=== PATIENT | male | born 1960 | race Caucasian/White ===

== ENCOUNTER 2016-11-14 20:51 | Emergency (ER) | payer OTHER ==
[2016-11-14 20:59] VITALS: BP 166/102; PULSE 71; TEMP 97.7; BMI 27.3
--- NOTE | 2016-11-14 21:04 | PDOC ---
History of Present Illness <Martin Neff - Last Filed: 11/14/16 21:00> - History of Present Illness Initial Comments: 11/14/16 21:05 The patient is a 55 year old male with no past medical hx who presents to the ED for evaluation of a laceration to his right index finger. The patient reports he was washing a glass in his kitchen this evening when the glass broke and cut his finger. He reports he has been bleeding from his finger since. The patient denies any other symptoms or complaints at this time. <Palak Rivero - Last Filed: 11/14/16 21:06> - General Chief Complaint: Injury Stated Complaint: LACERATION Time Seen by Provider: 11/14/16 20:59 Past History - Past Medical History GI Disorders: Yes (gastric ulcers) HTN: Yes - Immunization History Immunization Up to Date: Yes - Psycho/Social/Smoking Cessation Hx Anxiety: No Suicidal Ideation: No Smoking History: Never smoked Have you smoked in the past 12 months: No Information on smoking cessation initiated: No Hx Alcohol Use: No Drug/Substance Use Hx: No Substance Use Type: None <Martin Neff - Last Filed: 11/14/16 21:00> <Palak Rivero - Last Filed: 11/14/16 21:06> - Past Medical History Allergies/Adverse Reactions: Allergies Allergy/AdvReac Type Severity Reaction Status Date / Time aspirin AdvReac Verified 02/05/16 18:41 Home Medications: Ambulatory Orders Famotidine [Pepcid -] 20 mg PO BID #28 tablet 02/05/16 Simethicone [Gas Relief] 125 mg PO DAILY 02/05/16 Sucralfate [Carafate -] 1 gm PO QID #56 tablet 02/05/16 Review of Systems - Review of Systems Able to Perform ROS?: Yes Comments:: 11/14/16 21:05 SKIN: +Laceration to the right index finger <Palak Rivero - Last Filed: 11/14/16 21:06> *Physical Exam - Vital Signs Last Vital Signs Temp Pulse Resp BP Pulse Ox 97.7 F 71 16 166/102 100 11/14/16 20:56 11/14/16 20:56 11/14/16 20:56 11/14/16 20:56 11/14/16 20:56 - Physical Exam General Appearance: Yes: Nourished, Appropriately Dressed. No: Apparent Distress Respiratory/Chest: negative: Respiratory Distress Cardiovascular: positive: Regular Rhythm, Regular Rate Extremity: positive: Normal Capillary Refill, Normal Range of Motion, Other ( AVULSION LAC SUPERFICIAL RADIAL ASPECT RT INDEX MCP NTV INTACT) <Martin Neff - Last Filed: 11/14/16 21:00> - Vital Signs Last Vital Signs Temp Pulse Resp BP Pulse Ox 97.7 F 71 16 166/102 100 11/14/16 20:56 11/14/16 20:56 11/14/16 20:56 11/14/16 20:56 11/14/16 20:56 <Palak Rivero - Last Filed: 11/14/16 21:06> Procedures - Laceration/Wound Repair Right Lateral Hand Wound Length: to 2.5 cm Wound Explored: clean Wound's Depth, Shape: superficial Irrigated w/ Saline: Yes Wound Repaired With: Dermabond Progress: 11/14/16 21:02 STERI STRIPS <Martin Neff - Last Filed: 11/14/16 21:00> *DC/Admit/Observation/Transfer <Martin Neff - Last Filed: 11/14/16 21:00> - Attestations Scribe Attestion: 11/14/16 21:05 Documentation prepared by Palak Rivero, acting as medical donation professional for Martin Neff MD/DO. <Plaak Rivero - Last Filed: 11/14/16 21:06> Diagnosis at time of Disposition: Laceration of hand Qualifiers: Encounter type: initial encounter Laterality: right Qualified Code(s): S61.411A - Laceration without foreign body of right hand, initial encounter - Discharge Dispostion Disposition: HOME Condition at time of disposition: Stable - Patient Instructions Additional Instructions: MANTENGA LA FERULA POR DOS ALVARADO NO LA MOJE RETIRE LA FERULA Y LA GAZA EN 2 ALVARADO MARCK NO REMUEVA LOS ADHESIVOS REGRESE A LA EMERGENCIA SI PRESENTA FIEBRE, ENRROJECIMIENTO O MUCHO DOLOR JAGJIT IBUPROFEN PARA EL DOLOR LEOBARDO A OWENS DOCOTR ESTA SEMANA
== END 2016-11-14 21:11 | disposition home or self-care (01) ==
LOC: FER 20:51
PROC: 0HQFXZZ Repair Right Hand Skin, External Approach (ICD-10-PCS; principal; 2016-11-14)
DX: S61.210A Laceration without foreign body of right index finger without damage to nail, initial encounter (principal); W25.XXXA Contact with sharp glass, initial encounter; Y93.E9 Activity, other interior property and clothing maintenance; Y92.000 Kitchen of unspecified non-institutional (private) residence as the place of occurrence of the external cause
CPT/HCPCS: 99281-25

== ENCOUNTER 2021-06-15 10:38 | Emergency (ER) | payer SELFPAY ==
[2021-06-15 10:49] VITALS: BMI 27.9
[2021-06-15 13:02] LABS: BASO % 0.3 % (0-2.0); EOS % 0.5 % (0-4.5); HEMOGLOBIN 15.9 GM/dL (11.7-16.9); LYMPH % 26.2 % (8-40); MCH 31.4 pg (25.7-33.7); MCHC 33.7 g/dl (32.0-35.9); MEAN CELL VOLUME 92.9 fl (80-96); MEAN PLT VOLUME 9.8 fl (7.5-11.1); MONO % 5.6 % (3.8-10.2); NEUT % 67.4 % (42.8-82.8); PLATELET COUNT 173 10^3/uL (134-434); RBC 5.06 M/mm3 (4.00-5.60); RDW 13.7 % (11.9-15.9); WHITE BLOOD COUNT 9.3 K/mm3 (4.0-10.0)
[2021-06-15] MEDS ORDERED: CLOPIDOGREL BISULFATE 300 MG TABLET PO ONE (13:03)
[2021-06-15] MEDS ORDERED: ENOXAPARIN NA (PORCINE) 30 MG/0.3 ML DISP.SYRIN SQ ONE ×3 (13:05→13:14)
[2021-06-15] MEDS ORDERED: ASPIRIN 81 MG CHEWABLE TABLETS PO ONE (13:09)
[2021-06-15 13:12] LABS: CHLORIDE 107 mmol/L (98-107); SODIUM 140 mmol/L (136-145)
[2021-06-15] MEDS ORDERED: ASPIRIN 81 MG CHEWABLE TABLETS ONE (13:13)
[2021-06-15 13:14] LABS: CALCIUM 9.9 mg/dL (8.5-10.1)
[2021-06-15] MEDS ORDERED: ENOXAPARIN NA (PORCINE) 100 MG/1 ML DISP.SYRIN SQ ONE (13:14)
[2021-06-15] MEDS ORDERED: CLOPIDOGREL BISULFATE 300 MG TABLET ONE (13:14)
[2021-06-15 13:15] LABS: ALBUMIN 4.4 g/dl (3.4-5.0); ANION GAP 6 MMOL/L (8-16); BLOOD UREA NITROGEN 24.2 mg/dL (7-18); CO2 26 mmol/L (21-32); GLUCOSE,RANDOM 112 mg/dL (74-106); LIPASE 120 U/L (73-393)
[2021-06-15 13:18] LABS: CREATININE 1.7 mg/dL (0.55-1.3); SGOT/AST 19 U/L (15-37); SGPT/ALT 43 U/L (13-61)
[2021-06-15] MEDS ORDERED: SODIUM CHLORIDE 500 ML IV STA (13:18)
[2021-06-15 13:19] LABS: BILIRUBIN,TOTAL 0.9 mg/dL (0.2-1); TOT PROT 7.6 g/dl (6.4-8.2)
[2021-06-15 13:20] LABS: ALK PHOS 70 U/L (45-117)
[2021-06-15] MEDS ORDERED: TICAGRELOR 90 MG TABLET PO ONE ×2 (13:21→13:27)
[2021-06-15] MEDS ORDERED: HEPARIN NA (PORCINE) 5,000 UNITS/ML 1ML VIAL IVPUSH ONE (13:25)
[2021-06-15] MEDS ORDERED: HEPARIN NA (PORCINE) 5,000 UNITS/ML 1ML VIAL IVPUSH PRN ×2 (13:26)
[2021-06-15] MEDS ORDERED: HEPARIN SOD,PORK IN 0.45% NACL 25,000 UNITS/500 ML INFUS.BAG IVPB SCH (13:30)
[2021-06-15] MEDS ORDERED: HEPARIN NA (PORCINE) 5,000 UNITS/ML 1ML VIAL ONE (13:31)
[2021-06-15] MEDS ORDERED: HEPARIN INFUSION - 25,000 UNITS/500 ML INFUS.BAG IVPB ONE (13:31)
[2021-06-15 13:59] VITALS: TEMP 98.3
[2021-06-15 14:01] VITALS: BP 109/60; PULSE 89
== END 2021-06-15 14:00 | disposition short-term general hospital (02) ==
LOC: JER 10:38
PROC: 3E033GC Introduction of Other Therapeutic Substance into Peripheral Vein, Percutaneous Approach (ICD-10-PCS; principal; 2021-06-15)
PROC: 3E033GC Introduction of Other Therapeutic Substance into Peripheral Vein, Percutaneous Approach (ICD-10-PCS; 2021-06-15)
PROC: 3E0337Z Introduction of Electrolytic and Water Balance Substance into Peripheral Vein, Percutaneous Approach (ICD-10-PCS; 2021-06-15)
DX: I21.3 ST elevation (STEMI) myocardial infarction of unspecified site (principal)
CPT/HCPCS: 36415; 71045-TC-FY; 80053; 82550; 82553; 83690; 84484; 85025; 93005; 93010; 99285-25; C9803; J1644; U0003; U0005

== ENCOUNTER 2021-06-23 17:02 | Emergency (ER) | payer OTHER ==
[2021-06-23 17:07] VITALS: PULSE 98; TEMP 98.6; BMI 27.9
[2021-06-23] MEDS ORDERED: SODIUM CHLORIDE 0.9% 500 ML INFUS.BAG IV ONE (19:18)
[2021-06-23 20:30] LABS: EOS % 1.4 % (0-4.5); HEMATOCRIT 42.3 % (35.4-49); HEMOGLOBIN 14.5 GM/dL (11.7-16.9); LYMPH % 39.7 % (8-40); MCH 31.6 pg (25.7-33.7); MCHC 34.4 g/dl (32.0-35.9); MEAN PLT VOLUME 9.9 fl (7.5-11.1); MONO % 5.9 % (3.8-10.2); PLATELET COUNT 159 10^3/uL (134-434); WHITE BLOOD COUNT 8.6 K/mm3 (4.0-10.0)
[2021-06-23 20:52] LABS: CHLORIDE 104 mmol/L (98-107); SODIUM 138 mmol/L (136-145)
[2021-06-23 20:55] LABS: ALBUMIN 3.8 g/dl (3.4-5.0); ANION GAP 9 MMOL/L (8-16); BLOOD UREA NITROGEN 18.1 mg/dL (7-18); CO2 25 mmol/L (21-32); GLUCOSE,RANDOM 88 mg/dL (74-106)
[2021-06-23 20:58] LABS: CREATININE 1.5 mg/dL (0.55-1.3); SGOT/AST 25 U/L (15-37); SGPT/ALT 46 U/L (13-61)
[2021-06-23 21:00] LABS: BILIRUBIN,TOTAL 0.8 mg/dL (0.2-1); TOT PROT 7.1 g/dl (6.4-8.2)
[2021-06-23 21:01] LABS: ALK PHOS 74 U/L (45-117)
[2021-06-23 21:24] VITALS: BP 117/80
== END 2021-06-23 21:49 | disposition home or self-care (01) ==
LOC: JER 17:02
DX: I95.9 Hypotension, unspecified (principal)
CPT/HCPCS: 36415; 71045-TC-FY; 80053; 82550; 82553; 84484; 85025; 93005; 93010; 99285-25

== ENCOUNTER 2022-05-23 04:36 | Day surgery (SDC) | payer OTHER ==
[2022-05-19 07:42] VITALS: BMI 29.1
[2022-05-23] MEDS ORDERED: ACETAMINOPHEN 325 MG TABLET (FP) PO PRN (09:40)
[2022-05-23 09:42] VITALS: RESP 22; TEMP 97.1
[2022-05-23] MEDS ORDERED: LACTATED RINGERS SOLUTION 1,000 ML IV SCH (09:45)
[2022-05-23 10:25] VITALS: BP 116/75; PULSE 56
== END 2022-05-23 10:26 | disposition home or self-care (01) ==
LOC: JASU-ENDO 04:36
PROVIDERS: ATTEND Internal Medicine Gastroenterology
PROC: 0DB68ZX Excision of Stomach, Via Natural or Artificial Opening Endoscopic, Diagnostic (ICD-10-PCS; principal; 2022-05-23 09:30)
DX: K29.50 Unspecified chronic gastritis without bleeding (principal); K31.89 Other diseases of stomach and duodenum; R10.13 Epigastric pain
CPT/HCPCS: 88305-TC; 88342-TC

== ENCOUNTER 2022-10-26 04:02 | Day surgery (SDC) | payer OTHER ==
[2022-10-25 11:06] VITALS: BMI 29.7
[2022-10-26 09:37] VITALS: TEMP 98
[2022-10-26 10:20] VITALS: BP 104/80; PULSE 62; RESP 18
== END 2022-10-26 10:27 | disposition home or self-care (01) ==
LOC: JASU-ENDO 04:02
PROVIDERS: ATTEND Internal Medicine Gastroenterology
PROC: 0DBL8ZX Excision of Transverse Colon, Via Natural or Artificial Opening Endoscopic, Diagnostic (ICD-10-PCS; 2022-10-26)
PROC: 0DBN8ZX Excision of Sigmoid Colon, Via Natural or Artificial Opening Endoscopic, Diagnostic (ICD-10-PCS; 2022-10-26)
PROC: 0DBM8ZX Excision of Descending Colon, Via Natural or Artificial Opening Endoscopic, Diagnostic (ICD-10-PCS; 2022-10-26)
PROC: 06LY8CC Occlusion of Hemorrhoidal Plexus with Extraluminal Device, Via Natural or Artificial Opening Endoscopic (ICD-10-PCS; 2022-10-26)
PROC: 0DBH8ZX Excision of Cecum, Via Natural or Artificial Opening Endoscopic, Diagnostic (ICD-10-PCS; principal; 2022-10-26 09:15)
DX: Z12.11 Encounter for screening for malignant neoplasm of colon (principal); D12.0 Benign neoplasm of cecum; D12.3 Benign neoplasm of transverse colon; D12.4 Benign neoplasm of descending colon; K63.5 Polyp of colon; K64.8 Other hemorrhoids; I10 Essential (primary) hypertension
CPT/HCPCS: 88305-TC

== ENCOUNTER 2024-06-02 04:23 | Inpatient (IN) | payer OTHER ==
[2024-06-02] MEDS ORDERED: BUPIVACAINE HCL/PF 0.25% (2.5MG/ML) 10 ML VIAL ONE (12:47)
[2024-06-02] MEDS ORDERED: HEPARIN NA (PORCINE) 5,000 UNITS/ML 1ML VIAL ONE (12:47)
[2024-06-02] MEDS ORDERED: CEFOXITIN SODIUM 2 GM IVPB ONE ×2 (13:28→14:06)
[2024-06-02] MEDS ORDERED: ceFAZolin SODIUM 1 GM VIAL ONE (13:34)
[2024-06-02] MEDS: cefOXitin SODIUM 2 GM VIAL (RESTRICTED TO ID) IVPB ONE (14:12)
[2024-06-02] MEDS ORDERED: ROCURONIUM BROMIDE 50 MG/5 ML SYRINGE ONE (15:11)
[2024-06-02] MEDS ORDERED: SUGAMMADEX SODIUM 200 MG/2 ML VIAL ONE (16:03)
[2024-06-02] MEDS: BUPIVACAINE HCL/PF 0.25% (2.5MG/ML) 10 ML VIAL IJ ONE ×2 (16:12)
[2024-06-02] MEDS ORDERED: ACETAMINOPHEN 325 MG TABLET (FP) PO PRN (16:51)
[2024-06-02] MEDS ORDERED: oxyCODONE HCL 5 MG TABLET PO PRN (16:57)
[2024-06-02] MEDS ORDERED: morphine SULFATE 4 MG/ML VIAL SQ PRN (16:57)
[2024-06-02] MEDS ORDERED: ONDANSETRON 4 MG/2 ML VIAL IVPUSH PRN (16:58)
[2024-06-02] MEDS: LACTATED RINGERS SOLUTION 1,000 ML IV SCH (17:12)
[2024-06-02] MEDS: LACTATED RINGERS SOLUTION 1,000 ML/1,000 ML INFUS.BAG IV SCH (17:22)
[2024-06-02 21:02] VITALS: BMI 28.9
[2024-06-02] MEDS: TAMSULOSIN HCL 0.4 MG CAP PO SCH (21:32)
[2024-06-02] MEDS: ONDANSETRON 4 MG/2 ML VIAL IVPUSH SCH (21:33)
[2024-06-02] MEDS: METOCLOPRAMIDE HCL INJECTION 10 MG/2 ML VIAL IVPUSH SCH ×2 (21:33→21:53)
[2024-06-02] MEDS: FAMOTIDINE 20 MG/50 ML IVPB 20 MG/50 ML MG IVPB ONE (21:36)
[2024-06-02 22:10] VITALS: RESP 18
[2024-06-02] MEDS: ACETAMINOPHEN 1000 MG/100 ML BAG IVPB SCH (22:38)
[2024-06-03 09:27] LABS: POTASSIUM 4.6 mmol/L (3.5-5.1)
[2024-06-03 09:31] LABS: CALCIUM 9.3 mg/dL (8.5-10.1)
[2024-06-03 09:32] LABS: BLOOD UREA NITROGEN 17.2 mg/dL (7-18)
[2024-06-03 09:33] LABS: HEMATOCRIT 42.7 % (35.4-49); HEMOGLOBIN 14.4 GM/dL (11.7-16.9); MCH 31.3 pg (25.7-33.7); MCHC 33.6 g/dl (32.0-35.9); MEAN CELL VOLUME 93.2 fl (80-96); MEAN PLT VOLUME 9.5 fl (7.5-11.1); PLATELET COUNT 133 10^3/uL (134-434); RBC 4.58 M/mm3 (4.00-5.60); RDW 13.1 % (11.9-15.9); WHITE BLOOD COUNT 14.4 K/mm3 (4.0-10.0)
[2024-06-03 09:35] LABS: CREATININE 1.4 mg/dL (0.55-1.3)
[2024-06-03] MEDS: FAMOTIDINE 40 MG TABLET PO SCH (09:53)
[2024-06-03] MEDS: LISINOPRIL 10 MG TABLET PO SCH (09:53)
[2024-06-03] MEDS: ENOXAPARIN NA (PORCINE) 40 MG/0.4 ML DISP.SYRIN SQ SCH (09:53)
[2024-06-03 13:07] VITALS: BP 128/84; PULSE 78; TEMP 98.4
== END 2024-06-03 11:42 | disposition home or self-care (01) | DRG 220 ==
LOC: J2C 04:23 → EDSTATUS 08:00 → J8W 19:24
PROVIDERS: ADMIT Surgery; ATTEND Nurse Practitioner Family
PROC: 0DQ44ZZ Repair Esophagogastric Junction, Percutaneous Endoscopic Approach (ICD-10-PCS; 2024-06-02)
PROC: 0BQT3ZZ Repair Diaphragm, Percutaneous Approach (ICD-10-PCS; principal; 2024-06-02 12:00)
DX: K44.9 Diaphragmatic hernia without obstruction or gangrene (principal); I10 Essential (primary) hypertension; K21.9 Gastro-esophageal reflux disease without esophagitis; R33.9 Retention of urine, unspecified
CPT/HCPCS: 36415; 80048; 82962; 85027; 86850; 86900; 86901; 94760; J0131; J1644